=== PATIENT | male | born 1960 | race African-American/Black ===

== ENCOUNTER 2019-08-09 10:41 | Emergency (ER) | payer MEDICAID, OTHER ==
[~2019-08-09] VITALS: Ht 188 cm; Wt 108.9 kg
[2019-08-09 10:48] VITALS: BP 141/93
== END 2019-08-09 12:45 | disposition home or self-care (01) ==
LOC: ER 10:41
DX: I10 Essential (primary) hypertension (principal); M19.90 Unspecified osteoarthritis, unspecified site; Z76.0 Encounter for issue of repeat prescription

== ENCOUNTER → 2022-12-07 | Outpatient (CLI) | payer MEDICAID ==
[~2022-12-07] VITALS: Ht 190.5 cm; Wt 117.9 kg
[~2022-12-07] MED LIST: LIDOCAINE 1%HCL (LOCAL ANESTH) 10 ML MDV ONE
== END | disposition home or self-care (01) ==
LOC: Rad HDHVI 13:28
PROVIDERS: ATTEND Internal Medicine Cardiovascular Disease
DX: Z01.810 Encounter for preprocedural cardiovascular examination (principal); I10 Essential (primary) hypertension; E78.5 Hyperlipidemia, unspecified; R94.31 Abnormal electrocardiogram [ECG] [EKG]; F17.210 Nicotine dependence, cigarettes, uncomplicated
CPT/HCPCS: 78452; 93017; 96374; A9500

== ENCOUNTER → 2022-12-09 | Outpatient (CLI) | payer MEDICAID | END | disposition home or self-care (01) | LOC: Rad HDHVI 13:52 | PROVIDERS: ATTEND Internal Medicine Cardiovascular Disease | DX: I51.7 Cardiomegaly (principal); R06.02 Shortness of breath; E78.5 Hyperlipidemia, unspecified | CPT/HCPCS: 93306 ==

== ENCOUNTER 2024-05-21 17:00 | Emergency (ER) | payer MEDICAID ==
[~2024-05-21] VITALS: Ht 188 cm; Wt 113.6 kg
[2024-05-21 19:56] LABS: Basophils # (auto) 0 10 ^3/uL (0-0.2); Basophils % (auto) 0.2 % (0.0-2.0); Eosinophils # (auto) 0 10 ^3/uL (0-0.8); Eosinophils % (auto) 0.3 % (0.0-7.0); Hematocrit 38.7 % (41.0-53.0); Hemoglobin 13.6 g/dL (13.5-17.5); Lymphocytes # (auto) 0.9 10 ^3/uL (0.4-5.4); Lymphocytes % (auto) 9.7 % (10.0-50.0); Mean Corpuscular Hemoglobin 33.4 pg (28.0-32.0); Mean Corpuscular Volume 95.4 fL (80.0-100.0); Monocytes # (auto) 0.8 10 ^3/uL (0-1.3); Monocytes % (auto) 7.7 % (0.0-12.0); Neutrophils # (auto) 8.1 10 ^3/uL (1.6-8.6); Neutrophils % (auto) 82.1 % (37.0-80.0); Nucleated Red Blood Cells % 0.1 %; Red Blood Cells 4.06 10^6/uL (4.5-5.90); Red Cell Distribution Width 14.5 % (11.8-14.3); White Blood Cell 9.8 10^3/uL (4.4-10.8)
[2024-05-21 20:07] LABS: Anion Gap 12 (5-15); Carbon Dioxide 22 mmol/L (20-30); Chloride 109 mmol/L (98-107); Potassium 3.4 mmol/L (3.5-5.1); Sodium 143 mmol/L (136-145)
[2024-05-21 20:08] LABS: Calcium 9.8 mg/dL (8.7-10.4)
[2024-05-21 20:13] LABS: BUN/Creatinine Ratio 19.9 (10.0-20.0); Blood Urea Nitrogen 27 mg/dL (9-23); Glucose 115 mg/dL (74-106)
[2024-05-21 23:41] VITALS: BP 105/67; PULSE 75; RESP 16; TEMP 98.1; O2SAT 96
[2024-05-21] MEDS ORDERED: COLC1CAP PO (23:41)
[2024-05-21] MEDS: HYDROcodone-ACET 10/325MG TAB PO ONE (23:57)
[2024-05-21] MEDS: COLCHICINE 0.6 MG CAP PO ONE (23:57)
== END 2024-05-22 00:01 | disposition home or self-care (01) ==
LOC: ER 17:00 → EDBD 17:00 → ER 05-22 00:01
DX: M10.9 Gout, unspecified (principal); M25.462 Effusion, left knee; I10 Essential (primary) hypertension
CPT/HCPCS: 36415; 71045; 73562; 80048; 83880; 85025